=== PATIENT | male | born 2000 | race African-American/Black ===

== ENCOUNTER 2024-03-28 13:03 | Emergency (ER) | payer OTHER, SELFPAY ==
[2024-03-28 13:26] VITALS: BP 121/93; PULSE 89; RESP 16; TEMP 36.9; O2SAT 99
--- NOTE | 2024-03-28 13:37 | ED.HA ---
HPI - Headache General Chief Complaint: Headache Stated Complaint: Headache Time Seen by Provider: 03/28/24 13:37 Source: patient Mode of arrival: ambulatory Limitations: no limitations History of Present Illness HPI Narrative: 23-year-old male presents with complaint of migraine headache For 3 days. Patient reports history of similar headaches. States he has nausea, fatigue, light sensitivity. Has not seen a primary care physician for these headaches. States they Usually got better by taking [id number] migraine medications and usually within 24 hours. Patient states feels like sinus headache because it is in his forehead. Denies congestion, sinus pressure, ear pain, sore throat, postnasal drainage. Has tried [id number] sinus medications with no relief of his symptoms. Yesterday took 400 mg of ibuprofen with no relief of pain. Today tried an aspirin and had no relief of his pain. Patient ambulatory with steady gait. Patient is talkative and joking. Did not miss any work due to migraine. All systems reviewed and negative except as noted above. Related Data Allergies Allergy/AdvReac Type Severity Reaction Status Date / Time No Known Allergies Allergy Verified 03/28/24 13:40 Review of Systems Review of Systems: CONSTITUTIONAL: Denies fever, chills, or sweats. EYES: Denies visual changes, redness, or discharge. reports light sensitivity. ENT: Denies rhinorrhea, congestion, sore throat, or otalgia. CARDIOVASCULAR: Denies chest pain, palpitations, or edema. RESPIRATORY: Denies cough or dyspnea. GASTROINTESTINAL: Denies abdominal pain, vomiting, or diarrhea. Reports nausea. GENITOURINARY: Denies dysuria or hematuria. SKIN: Denies rash or itching. MUSCULOSKELETAL: Denies back pain, joint pain, or myalgia. NEUROLOGIC: Reports headache. Denies numbness, or weakness. PSYCHIATRIC: Denies anxiety or depression. All other systems reviewed are negative, except as documented in HPI. PMFSH Comments At time of signature, agree with nursing past medical, surgical, social and family history. There is no relevant family history pertinent to the presenting complaint. Exam Narrative: GENERAL: This is a well-nourished, well-developed patient, in no apparent distress. HEAD: normocephalic, atraumatic. EYES: PERRL. Sclera clear/white. Vision is grossly intact. Extraocular motions intact. EARS: External ears normal, auditory canals clear and without drainage, TMs normal without perforation. Hearing grossly intact. NOSE: External nose normal with no obvious nasal discharge, nares without redness, no rhinorrhea. THROAT: Mucous membranes moist, posterior pharynx clear. NECK: Neck supple, non-tender without lymphadenopathy, masses or thyromegaly. CARDIOVASCULAR: Regular rate and rhythm without murmurs, gallops, or rubs. RESPIRATORY: Clear to auscultation. Breath sounds equal bilaterally. No wheezes, rales, or rhonchi. SKIN: warm, Dry, intact with no suspicious lesions or rash, good texture and turgor. NEURO: awake, alert, and oriented to person, place and time. There were no obvious focal neurologic abnormalities. Hand hygiene coordinator equal. No arm drift. EXTREMITIES: No joint tenderness, effusion, or edema noted. Normal range of motion to all extremities. Course Course Level of Care: Express Care Visit Vital Signs Vital signs: Vital Signs Temperature 36.9 C 03/28/24 13:26 Pulse Rate 89 03/28/24 13:26 Respiratory Rate 16 03/28/24 13:26 Blood Pressure 121/93 H 03/28/24 13:26 Pulse Oximetry 99 03/28/24 13:26 Oxygen Delivery Room Air 03/28/24 13:26 Temperature 36.9 C 03/28/24 13:26 Pulse Rate 89 03/28/24 13:26 Respiratory Rate 16 03/28/24 13:26 Blood Pressure 121/93 H 03/28/24 13:26 Pulse Oximetry 99 03/28/24 13:26 Oxygen Delivery Room Air 03/28/24 13:26 Reviewed MDM - Headache MDM Narrative Medical decision making narrative: patient stating that migraine h
[2024-03-28] MEDS: KETOROLAC (*BKC) 60 MG/2 ML VIAL IM (13:58)
[2024-03-28] MEDS: diphenhydrAMINE HCl CAP 25 MG CAPSULE PO (13:58)
[2024-03-28] MEDS: ONDANSETRON HCL ODT 4 MG TABLET SUBLINGUAL (13:58)
== END 2024-03-28 15:00 | disposition home or self-care (01) ==
PROVIDERS: Emergency Provider Nurse Practitioner Family
DX: G43.909 Migraine, unspecified, not intractable, without status migrainosus (principal)
CPT/HCPCS: 96372; 99203; A9270; G0463; J1885

== ENCOUNTER 2025-04-13 18:51 | Emergency (ER) | payer OTHER, SELFPAY ==
[2025-04-13 18:59] VITALS: BP 130/67; PULSE 70; RESP 18; TEMP 37; O2SAT 99
--- NOTE | 2025-04-13 19:27 | ED.ABDPAIN ---
HPI - Abdominal Pain General Chief Complaint: Abdominal Pain Stated Complaint: Abdominal Pain Time Seen by Provider: 04/13/25 19:13 Source: patient and RN notes reviewed Mode of arrival: ambulatory Limitations: no limitations History of Present Illness HPI narrative: Patient presents today complaining of epigastric pain since yesterday which he describes as cramping. He was also experiencing some nausea which has since resolved, with 1 episode of vomiting earlier today. He has been able to keep down some fluids since that time. Currently rates his epigastric pain 5/10. He has taken some Pepto-Bismol and 3 laxatives approximately 5 hours prior to arrival. He reports he may have had some constipation as well. Last bowel movement was late last night or earlier this morning and was hard. He denies any history of GERD or heartburn symptoms. He was out of town last weekend with his family and was drinking alcohol frequently. Related Data Home Medications ?Medication ?Instructions ?Recorded ?Confirmed ?Last Taken ?Type No Home Medications 04/13/25 04/13/25 Unknown History Allergies Allergy/AdvReac Type Severity Reaction Status Date / Time No Known Allergies Allergy Verified 04/13/25 19:09 [facility] Comments At time of signature, I have reviewed and agree with nursing past medical, surgical, social and family history unless otherwise noted. Please see nursing chart for further information. There is no relevant family history pertinent to the presenting complaint Exam Narrative: GENERAL: Well-appearing, well-nourished, and in no acute distress. HEAD: Normocephalic, atraumatic. EYES: EOMI. No redness or drainage. Conjunctivae normal. ENT: Mucous membranes pink and moist. NECK: Normal AROM. CHEST: No respiratory distress. Clear to auscultation. HEART: Regular rate and rhythm. No murmur appreciated. ABDOMEN: Soft, nontender, nondistended, normal active bowel sounds. No rebound or guarding. EXTREMITIES: Normal range of motion. No edema. SKIN: Warm, dry, no rash. Capillary refill normal. Normal skin turgor. NEURO: No focal deficits. Alert and oriented x3. Gait steady. PSYCH: Normal affect. No signs of depression or anxiety. Course Course Level of Care: Express Care Visit Vital Signs Vital signs: Vital Signs Temperature 98.6 F 04/13/25 18:59 Pulse Rate 70 04/13/25 18:59 Respiratory Rate 18 04/13/25 18:59 Blood Pressure 130/67 04/13/25 18:59 Pulse Oximetry 99 04/13/25 18:59 Oxygen Delivery Room Air 04/13/25 18:59 Temperature 98.6 F 04/13/25 18:59 Pulse Rate 70 04/13/25 18:59 Respiratory Rate 18 04/13/25 18:59 Blood Pressure 130/67 04/13/25 18:59 Pulse Oximetry 99 04/13/25 18:59 Oxygen Delivery Room Air 04/13/25 18:59 Reviewed MDM - Abdominal Pain MDM Narrative Medical decision making narrative: Pleasant 24-year-old male patient presents with epigastric pain that started yesterday for which she has tried Pepto-Bismol and laxatives. He vomited once today and is not having any lingering nausea. Laxatives have produced several bowel movements as well. Denies blood or mucus in the stool. During exam he is having no abdominal tenderness to palpation. GI cocktail of Mylanta and viscous lidocaine has produced a decrease in pain from 5/10 to 3/10. Patient has recently been drinking alcohol he was on vacation out of town family, and this may be the culprit of his likely gastritis. Recommend starting a PPI and bland diet. Vital signs are stable, exam is grossly normal. Patient agrees with plan. Strict ED precautions given. Differential Diagnosis Differential diagnosis: Likely abdominal pain, pancreatitis and other (GERD, gastritis, constipation) Critical Care Time Critical Care Time Critical Care Time: No Discharge Plan Discharge Clinical Impression: Gastritis Qualifiers: Gastritis type: unspecified gastritis Chronicity: acute Gastritis bleeding: presence of bleeding unspecified Qualified Code(s): K29.00 - Acute gastritis without bleeding Patient Disposition: Home Condition: Stable Instructions: Gastritis (DC), Diet for Stomach Ulcers and Gastritis (ED) Additional Instructions: Your symptoms are likely due to irritation in your stomach/increased acid. Please start a medication that can decrease the acid in your stomach such as [id number] omeprazole or Nexium. Stay with a bland diet at least for the 1st couple of days, then advance as tolerated. Stay away from foods such as citrus foods, fried or spicy foods, alcohol. Follow-up with your PCP if symptoms are not improving, and go to the ER if symptoms worsen. Your blood pressure was elevated above 120/80 today at Urgent Care. This puts you above the threshold for follow up. Please schedule a followup visit with your personal physician as soon as possible, for further evaluation and treatment. Even blood pressure exceeding 120/80 may indicate pre-hypertension. Patient Language: Bulgarian Prescriptions: No Action No Home Medications Follow-up/Referrals: PHYSICIAN,VARNISHER PLASTICOATER [Primary Care Provider] - Stand Alone Forms: Work/School Release IP Time of Disposition: 19:54
[2025-04-13] MEDS: LIDOCAINE 2% VISC SOLN 15 ML UDC 10 ML PO (19:30)
[2025-04-13] MEDS: MAG HYDROX/AL HYDROX/SIMETH 30 ML UDC PO (19:30)
== END 2025-04-13 19:58 | disposition home or self-care (01) ==
PROVIDERS: Emergency Provider Nurse Practitioner
DX: K29.00 Acute gastritis without bleeding (principal)
CPT/HCPCS: 99213; A9270; G0463